=== PATIENT | male | born 1995 | race Two or more races ===

== ENCOUNTER 2022-10-20 05:38 | Day surgery (SDC) | payer OTHER ==
[~2022-10-20] VITALS: Ht 172.7 cm; Wt 93.0 kg
[2022-10-20] MEDS ORDERED: OXYC1TAB9 PO (10:58)
== END 2022-10-20 18:10 | disposition home or self-care (01) ==
LOC: CIR.AMB 05:38
PROVIDERS: ATTEND Surgery
DX: K64.2 Third degree hemorrhoids (principal); K64.4 Residual hemorrhoidal skin tags; K64.8 Other hemorrhoids; K62.89 Other specified diseases of anus and rectum; K62.5 Hemorrhage of anus and rectum; Z20.822 Contact with and (suspected) exposure to COVID-19; I10 Essential (primary) hypertension; Z88.0 Allergy status to penicillin